=== PATIENT | female | born 1965 | race Caucasian/White ===

== ENCOUNTER 2023-07-17 11:10 | Emergency (ER) | payer OTHER ==
[2023-07-17] MEDS ORDERED: diphenhydrAMINE 25 MG CAP ONE (11:33)
[2023-07-17] MEDS ORDERED: Boostrix 0.5 ML (Tdap) VIAL (>/=7 yrs of age) ONE (11:34)
== END 2023-07-17 12:45 | disposition home or self-care (01) ==
LOC: ERS 11:10
DX: S51.852A Open bite of left forearm, initial encounter (principal); S61.452A Open bite of left hand, initial encounter; S61.451A Open bite of right hand, initial encounter; I10 Essential (primary) hypertension; W55.01XA Bitten by cat, initial encounter; Z23 Encounter for immunization
CPT/HCPCS: 90471; 90715